=== PATIENT | female | born 1995 | race Caucasian/White ===

== ENCOUNTER → 2017-05-27 | Outpatient (CLI) | payer BC ==
[2017-05-28 01:01] LABS: Cardiolipin Ab IgG Interp NEGATIVE (NEGATIVE)
[2017-05-29 12:05] LABS: APTT 42 Sec(s) (<43); Dilute Russell Viper Venom 36 Sec(s) (<44)
== END | disposition home or self-care (01) ==
LOC: LABWHC1 17:13
PROVIDERS: ATTEND Obstetrics & Gynecology Obstetrics
DX: D68.9 Coagulation defect, unspecified (principal); N92.0 Excessive and frequent menstruation with regular cycle
CPT/HCPCS: 36415; 85613; 85730; 86146; 86147

== ENCOUNTER 2024-01-26 13:38 | Emergency (ER) | payer OTHER, BC ==
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
[2024-01-26 15:59] VITALS: BP 124/78; PULSE 88; RESP 16; TEMP 98.1
== END 2024-01-26 16:05 | disposition home or self-care (01) ==
LOC: EC 13:38
CPT/HCPCS: 76815; 99284